=== PATIENT | male | born 1955 | race Caucasian/White ===

== ENCOUNTER 2017-01-31 06:42 | Inpatient (IN) | payer BC, OTHER ==
--- NOTE | 2016-12-18 09:34 | HP ---
DATE OF DICTATION: 12/05/2016 REASON FOR ADMISSION: Complex chronically incarcerated ventral incisional hernia. BRIEF HISTORY: This is a 61-year-old gentleman whose history dates back to September of 2012, at which point he presented to [facility] with a large liver abscess. It was thought that his abscess at that time was due to acute cholecystitis. The patient was subsequently managed and then transferred to [facility], at which point he underwent an attempt at a laparoscopic cholecystectomy. During that surgery, according to the patient, there was a complication and he had to be converted to an open procedure and have his bile duct reconstructed. He now presents to the office with complaint of having a progressive bulge over the past several years in his upper abdomen. Patient has had no nausea, no vomiting, no change in bowel habits. The patient does state the bulge has gotten significantly larger since it first occurred several years ago. Past medical history significant for heart disease. 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 He has a mechanical valve. He has a history of hypertension and prostate cancer. PAST SURGICAL HISTORY: As mentioned above. MEDICATIONS: Simvastatin, Coreg, and Coumadin. ALLERGIES: None. SOCIAL HISTORY: Patient does not smoke. He drinks socially. PHYSICAL EXAMINATION: HEENT: Unremarkable. Lungs: Clear. Heart: Regular rhythm. Abdomen: Soft, nontender, nondistended. He has a chevron scar. He has a large hernia in the epigastrium as well as a hernia overlying the left upper quadrant from his scar from the chevron. On the right side of the scar, there is no obvious defect appreciated; however, there is significant diastatic weakness. IMPRESSION/PLAN: Complex chronically incarcerated ventral incisional hernia with diastasis: This is a 61-year-old gentleman who underwent an open cholecystectomy and bile duct reconstruction about 4 years ago. Since that time, he has had a progressive bulge in the upper abdomen on the left consistent with an incisional hernia. The hernia now has gotten significantly larger and extends from the left upper quadrant into the epigastrium. I suspect on the right side he probably has Tanzanian-cheese defects as well. The right side is diastatic. The patient and myself had a very long conversation regarding the various approach options for him and it is my feeling that he is best approached via an open way and an attempt at a preperitoneal repair should be made. Given that attempt, he most likely will require bilateral component separation. Prior to surgery, the patient will undergo complete medical evaluation by his primary care physician, Dr. Callejas, as well as his caseworker intake. The caseworker intake will determine whether or not a Lovenox bridge is indicated, or heparin is better. Once the patient is cleared medically, will plan for his surgery. Bettina OLIVER [id number] cc: Dr. Callejas
[2017-01-29 16:51] VITALS: BMI 26.6
[2017-01-31] MEDS ORDERED: ceFAZolin SODIUM 1 GM VIAL ONE (07:25)
[2017-01-31] MEDS ORDERED: MIDAZOLAM HCL 2 MG/2 ML SINGLE DOSE VIAL ONE (07:38)
[2017-01-31] MEDS ORDERED: PROPOFOL 20 ML ONE ×2 (07:38)
[2017-01-31] MEDS ORDERED: ROCURONIUM BROMIDE 50 MG/5 ML VIAL ONE ×3 (07:39→09:56)
[2017-01-31 07:53] LABS: INR 1.86 (0.82-1.09); PROTHROMBIN TIME (PATIENT) 20.7 SEC (9.98-11.88)
[2017-01-31] MEDS ORDERED: ceFAZolin SODIUM 1 GM VIAL IVPB ONE (08:22)
[2017-01-31] MEDS ORDERED: NEOSTIGMINE METHYLSULFATE 0.5 MG/ML - 10 ML MDV ONE (09:22)
[2017-01-31] MEDS ORDERED: DEXAMETHASONE SOD PHOSPHATE 4 MG/1 ML VIAL ONE (09:22)
[2017-01-31] MEDS ORDERED: LIDOCAINE HCL/PF 2% SDV 5ML VIAL ONE (09:22)
[2017-01-31] MEDS ORDERED: LIDOCAINE HCL 2% JELLY (5 ML/TUBE) ONE (09:22)
[2017-01-31] MEDS ORDERED: GLYCOPYRROLATE 0.2 MG/1 ML VIAL ONE (09:22)
[2017-01-31] MEDS ORDERED: ONDANSETRON 4 MG/2 ML VIAL ONE (09:22)
[2017-01-31] MEDS ORDERED: ACETAMINOPHEN 325 MG TABLET (FP) PO PRN (11:44)
[2017-01-31] MEDS ORDERED: morphine CARPU-JECT 4 MG/1 ML DISP.SYRIN IVPB PRN (11:44)
[2017-01-31] MEDS ORDERED: ONDANSETRON 4 MG/2 ML VIAL IVPB PRN (11:44)
[2017-01-31] MEDS ORDERED: oxyCODONE HCL 5 MG TABLET PO PRN (11:44)
[2017-01-31] MEDS ORDERED: PROMETHAZINE HCL 25 MG/1 ML VIAL IVPUSH PRN (12:14)
[2017-01-31] MEDS ORDERED: LACTATED RINGERS SOLUTION 1,000 ML IV SCH (12:15)
[2017-01-31] MEDS ORDERED: IBUPROFEN 800 MG/8 ML IJ IVPB ONE (14:28)
[2017-01-31] MEDS: IBUPROFEN 800 MG/8 ML IJ IVPB SCH ×3 (14:30→17:18)
[2017-01-31] MEDS: D5-1/2NS+20 MEQ KCL - 1,000 ML IV SCH (17:24)
[2017-01-31] MEDS: CEFAZOLIN (PRE-DOCKED) 50 ML IVPB SCH (18:19)
[2017-01-31] MEDS ORDERED: SIMVASTATIN PO SCH (22:00)
[2017-01-31] MEDS: CARVEDILOL 25 MG TABLET (FP) PO SCH (22:20)
--- NOTE | 2017-01-31 23:26 | OP ---
DATE OF OPERATION: 01/31/2017 PREOPERATIVE DIAGNOSIS: Complex chronically incarcerated incisional hernia. POSTOPERATIVE DIAGNOSIS: Complex chronically incarcerated incisional hernia. PROCEDURE: Laparotomy, open bilateral component separation, open bilateral transversus abdominal release, peritoneal lavage, repair of complex ventral incisional incarcerated hernia with mesh, excision of 280 sq cm devitalized tissue. SURGEON: Donovan Garcia M.D. CHURN DRILL OPERATOR: Hawk Mckeon D.O. ANESTHESIOLOGIST: Loan Eugene M.D. ANESTHESIA: General. ESTIMATED BLOOD LOSS: Minimal. SPECIMEN: Devitalized tissue and portion of hernia sac. MEDICAL COMORBIDITIES: Essential hypertension, hyperlipidemia, diabetes, dilatation of the aorta at the root with repair, AVR, and the patient is chronically anticoagulated due to mechanical heart valve. INDICATION FOR PROCEDURE: This is a 61-year-old gentleman who underwent a laparoscopic cholecystectomy and subsequently had an issue with the bile duct requiring conversion to an open repair and a choledochojejunostomy needed to be created. That incision was done through a chevron incision, and since that time the patient has had progressive bulge in the incision from the midline and off to the left of the chevron. He now presents to the office with a large mass in the upper abdomen, mostly centered in the left upper quadrant and midline and a small portion off to the right upper quadrant. This mass is consistent with chronically incarcerated ventral incisional hernia. Due to the generosity of this hernia, and very thinned out hernia sac (hernia is right beneath the dermis of the skin on physical exam), and therefore he is here for the above procedure. DESCRIPTION OF PROCEDURE: Patient was identified and appropriately positioned on the operating room table. After placement of general anesthesia, the abdomen was prepped and draped in the usual sterile fashion with Chloraprep. An incision overlying the previous chevron was made. The vertical portion of the midline was not opened. Then 2 flaps were subsequently created with the cautery. The superior flap was taken above the costal margin, and the inferior flap taken down to the level of the umbilicus. In the chevron portion of the left upper quadrant, the hernia sac was just deep to the dermis; this was sharply. The sac was opened, and entered, and there were adhesions of omentum, small bowel, and colon within this hernia sac. These adhesions were all taken down with sharp dissection. The hernia sac stripped from the subcutaneous tissue and off the dermis, and portions of the sac were excised and handed off as specimen (portion of hernia sac). Next, it was obvious the fascia had retracted off to the patient's left side as well as superiorly. The patient had no rectus muscle essentially on the right side; on the right, the rectus was fairly still well developed. Attention was focused to the harder side first (left side). The anterior fascia of the rectus/abdominal wall that was remaining within scored and the atrophic rectus muscle identified. The muscle was densely adherent to the posterior rectus sheath. This was with blunt and sharp dissection and the dissection went the length of the defect from north to south as well as laterally. Once the rectus border was passed, the perforating vessels were noted. The fascia was subsequently scored on the transversus just medial to the perforating vessels and in the left upper quadrant the transversus was fairly muscular; this fascial division allowed entry beyond the lateral abdominal wall and onto the left chest. The transversus abdominis release was then performed the length of the incision. Inferiorly it was taken down to the level of the umbilicus. The tissue beyond this was not affected and fairly intact. As this posterior layer was developed medially and inferiorly, the tissue at the level of the hernia was completely thinned out and almost nonexistent. Next the posterior sheath was developed in the midline superiorly to inferiorly and at this point attention now was focused on the patient's right side. The right retrorectus space was much easier to enter and develop. The posterior sheath was then scored. The component of the posterior sheath and the retrorectus muscle was then . This component separation ensued the length of the incision and inferiorly was taken down to the level of the umbilicus and superiorly taken on to the right chest wall. Then laterally this plane was subsequently developed and due to his subcostal incision, the muscle was adherent at various points to the posterior sheath and this separation was very difficult, and therefore portions of the rectus muscle were sharply divided. The fibers of the rectus muscle were divided as needed to allow passage onto the transversus. Next the perforating vessel was identified, and again the fascia medial to the perforating vessel was sharply divided, and the transversus abdominis was released and from the rectus as well as the obliques. This space was now developed bluntly out laterally beyond the old chevron scar, and superiorly was taken to the level on top of the ribcage, and inferiorly this plane was developed to the level of the umbilicus. Once the fascial planes were developed and the component separation of the rectus and posterior rectus sheath was performed on both sides, as well as the transversus released, this space was examined once again, noted to be hemostatic. The posterior sheath was then closed with a running 2-0 V-Loc suture. Next the defect measured, and the operative field examined once again. For the operative repair, two pieces of mesh were used, a piece of Phasix on the posterior sheath side, and a piece of Versatex mesh on the retrorectus side. The Phasix used was a 20 x 25 and the Versatex mesh used was a 30 x 30. The two pieces were sewn together with interrupted 3-0 Vicryl sutures. At this point, the sponge and instruments counts were performed and noted to be correct. The mesh placed into the retrorectus space and superiorly was placed above the costal margin on both sides and inferiorly it was placed at the level of the umbilicus. The mesh fanned out and covered all defects, and beyond the defect as well. The mesh was then anchored with interrupted anchors. The subcutaneous space was irrigated. The mesh irrigated. The operative field examined and noted to be hemostatic. The fascia of the anterior sheath of the rectus on both sides was then reapproximated with interrupted number 1 PDS suture. The subcutaneous space irrigated. The patient had 280 cm of devitalized excess tissue excised sharply which was handed off as specimen. Hemostasis of the cut skin edges was achieved with cautery as well. Two 10 flat JPs were placed and brought out through separate stab incisions and sewn to the abdominal wall with interrupted 2-0 silk suture. All skin closed with billie followed by Dermabond. At the conclusion of this case, sponge counts were correct. ATTESTATION: Brief operative note handwritten on the preprinted form. [facility] queried prior to giving any narcotics. Bettina OLIVER [id number] cc: Patricio Callejas M.D.
[2017-02-01] MEDS: D5-1/2NS+20 MEQ KCL - 1,000 ML IV SCH (00:54)
[2017-02-01] MEDS: IBUPROFEN 800 MG/8 ML IJ IVPB SCH ×4 (00:55→16:59)
[2017-02-01] MEDS: CEFAZOLIN (PRE-DOCKED) 50 ML IVPB SCH ×2 (01:24→09:07)
[2017-02-01] MEDS ORDERED: WARFARIN NA 2 MG TABLET (UD) PO ONE (08:57)
--- NOTE | 2017-02-01 09:04 | PN ---
Progress Note (short form) - Note Progress Note: surgery pt seen and examined. ambulating. voiding. tolerating diet. very concerned about his coumadin dosing. comfortable otherwise. afebrile u/o 800, lawrence about 100 combined serosanguinous abd- soft, incision clean, no ecchymosis on abd or flank, minimal expected tenderness. Plan- will d/c home, regular dose of coumadin. risk of bleed less than risk of stroke or valve failure. rx percocet. f/u with Dr. Garcia next week to be evaluated for removal of one of the drains.
[2017-02-01] MEDS: CARVEDILOL 25 MG TABLET (FP) PO SCH (09:08)
--- NOTE | 2017-02-01 09:30 | DS ---
DATE OF ADMISSION: 01/31/2017 DATE OF DISCHARGE: 02/01/2017 ADMITTING DIAGNOSIS: Complex incarcerated incisional hernia with pre-existing cardiac valvular disease. DISCHARGE DIAGNOSIS: Complex incarcerated incisional hernia with pre-existing cardiac valvular disease. BRIEF HISTORY: This is a 61-year-old male who presented for surgical management of a complex incarcerated incisional hernia. He was operated white on anti- coagulation due to thrombotic risk from an artificial cardiac valve. Intraoperative had no complications. Please reference Dr. Garcia's operative report for more details. He is being discharged home today, February 01. He is ambulating, tolerating liquid diet and voiding. He has no signs of ongoing bleeding. PLAN: 1. He will go home on his usual dose of Coumadin as well as his regular cardiac medications including Norvasc simvastatin and carvedilol. 2. He will have a new prescription for Percocet, which he will take as needed for pain. 3. He is also okay to take Motrin in short-term attempts to avoid narcotic, if possible. 4. He is okay to walk, okay to climb stairs. 5. He will not drive. 6. He will not lift anything more than 20 pounds. 7. He will likely require 1 month off work. 8. He will go home with 2 Coy-Hernandez drains. He will be evaluated by Dr. Garcia in 1-2 weeks' time to be evaluated for a Coy-Hernandez drain removal. He will likely need to keep at least 1 drain for 2 full weeks. He will only sponge bathe while the drains are in. 9. He does not require antibiotics at the time of discharge. IMPRESSION: At the time of discharge, his abdomen is soft. There is no ecchymosis, no sign of infection. DO REYNALDO [id number] MTDD
--- NOTE | 2017-02-01 09:39 | PN ---
Progress Note (short form) - Note Progress Note: Post op day#1.S/P Repair of complex hernia with abdominal wall reconstruction under GA uneventful.Patient stable.No any anesthesia related problem.Patient DC from the anesthesia care.
[2017-02-01] MEDS ORDERED: PANTOPRAZOLE 40 MG TABLET (FP) PO SCH (10:00)
[2017-02-01] MEDS ORDERED: ASPIRIN COATED 81 MG TABLET.EC PO SCH (10:00)
[2017-02-01] MEDS ORDERED: PANTOPRAZOLE SODIUM 100 ML IVPB SCH (10:00)
[2017-02-01] MEDS ORDERED: amLODIPine BESYLATE 10 MG TABLET (FP) PO SCH (10:00)
--- NOTE | 2017-02-01 13:12 | PATH ---
Surgical Pathology Report Patient Name: VIANCA FOLEY Med. Rec. #: [id number] /Age/Gender: 1955 (Age: 61) / M Account: [id number] Location: [facility] MED/SURG Taken: 01/31/2017 Received: 01/31/2017 Reported: 02/01/2017 Physicians: Donovan Garcia Specimen(s) Received A: HERNIA SAC B: 280 SQ CM DEBRIDED SKIN & TISSUE Clinical History Complex ventral hernia Final Diagnosis A. SOFT TISSUE, ABDOMINAL WALL, EXCISION: FIBROMEMBRANOUS TISSUE CONSISTENT WITH HERNIA SAC, WITH ATTACHED ADIPOSE TISSUE. B. SKIN AND SOFT TISSUE, ABDOMINAL WALL, EXCISION: BENIGN SKIN WITH FOCAL NONSPECIFIC DERMAL CHRONIC INFLAMMATION, AND UNREMARKABLE SUBCUTANEOUS ADIPOSE TISSUE. Electronically Signed Edwin Zazueta M.D. Gross Description A. Received in formalin labeled "portion of hernia sac," is 11.0 x 9.0 x 2.3 cm aggregate of multiple irregular, unoriented portions of yellow, lobulated adipose tissue with attached rasmussen-pink fibromembranous tissue. No areas of hemorrhage or necrosis are identified. Boiler Assistant Operator sections are submitted in one cassette. B. Received in formalin, labeled "excised 280 cm devitalized skin and tissue," is a 23.0 x 7.0 x 1.5 cm aggregate of 2 rasmussen, irregular, unoriented portions of skin with underlying soft tissue. No discrete lesions are identified. Boiler Assistant Operator sections are submitted in one cassette. /01/31/2017/01/31/2017
[2017-02-01 17:04] VITALS: BP 118/73; PULSE 53; TEMP 98.6
[2017-02-01] MEDS ORDERED: WARFARIN NA 2 MG TABLET (UD) PO SCH (18:00)
== END 2017-02-01 18:02 | disposition home health service (06) | DRG 337 ==
LOC: JSAMEDAYSX 06:42 → J8W 15:12
PROVIDERS: ADMIT Surgery; ATTEND Surgery
PROC: 0DN80ZZ Release Small Intestine, Open Approach (ICD-10-PCS; 2017-01-31)
PROC: 0JN80ZZ Release Abdomen Subcutaneous Tissue and Fascia, Open Approach (ICD-10-PCS; 2017-01-31)
PROC: 0JB80ZZ Excision of Abdomen Subcutaneous Tissue and Fascia, Open Approach (ICD-10-PCS; 2017-01-31)
PROC: 3E1M38Z Irrigation of Peritoneal Cavity using Irrigating Substance, Percutaneous Approach (ICD-10-PCS; 2017-01-31)
PROC: 0WUF0JZ Supplement Abdominal Wall with Synthetic Substitute, Open Approach (ICD-10-PCS; principal; 2017-01-31 08:00)
DX: K43.0 Incisional hernia with obstruction, without gangrene (principal); I10 Essential (primary) hypertension; E78.5 Hyperlipidemia, unspecified; E11.9 Type 2 diabetes mellitus without complications; I77.819 Aortic ectasia, unspecified site; Z95.2 Presence of prosthetic heart valve; Z79.01 Long term (current) use of anticoagulants; Z85.46 Personal history of malignant neoplasm of prostate
CPT/HCPCS: 36415; 85610; 86850; 86900; 86901; 88302-TC; 94760